=== PATIENT | male | born 1980 | race Caucasian/White ===

== ENCOUNTER → 2018-04-01 13:34 | Outpatient (CLI) | payer OTHER, SELFPAY ==
--- NOTE | 2018-04-01 | DI.ECHO.S_ITS ---
[facility] +---------+ : : [address] : : : : [id number] : : : : Phone: [phone]+ Echocardiogram Report + + :Name: TRISTON GARAY Study Date: 04/01/2018 Height: 73 in : :[facility] Weight: 200 lb : : Gender: Male BSA: 2.2 m2 : :: 1980 Age: 37 yrs BP: 124/78 mmHg: :Reason For Study: Atrial fibrillation : :Ordering Physician: Rajan : :Kandice Performed By: Nelly Benavides : + + Interpretation Summary Normal echo study. Procedure: A two-dimensional transthoracic echocardiogram with color flow and Doppler was performed. The study quality was technically good. There is no prior echocardiogram noted for this patient. The patient was in normal sinus rhythm during the exam. Left Ventricle: The left ventricle is normal in size, wall thickness, and systolic function without any focal wall motion abnormalities. There is no ventricular septal defect visualized. The ejection fraction is estimated to be 60-65%. Assessment of diastolic parameters indicates normal left ventricular diastolic function and normal filling pressures. Right Ventricle: The right ventricle is normal in size and function. Atria: Both atria are normal in size. There is no Doppler evidence for an interatrial shunt. Mitral Valve: The mitral valve is normal in structure and function. There is no mitral regurgitation noted. Aortic Valve: The aortic valve is trileaflet. The aortic valve opens well. No aortic regurgitation is present. Tricuspid Valve: The tricuspid valve is normal in structure and function. There is a trace or physiologic amount of tricuspid regurgitation. The right ventricular systolic pressure is estimated at 17 mmHg assuming a right atrial pressure of 3 mm Hg. Pulmonic Valve: The pulmonic valve is normal in structure and function. There is a trace or physiologic amount of pulmonic regurgitation. Great Vessels: The aortic root is normal size. The ascending aorta is normal in size. The aortic arch is normal in size. The pulmonary artery is normal size. The IVC is of normal diameter and collapses greater than 50% with a sniff. This suggests a low right atrial pressure of 3 mm Hg. Pericardium/ Pleura There is no pericardial effusion. MMode/2D Measurements & Calculations LVIDd: 4.7 cm LVOT diam: 2.1 cm LVIDs: 3.0 cm Ao root diam: 3.6 cm FS: 36.7 % Aortic Jxn: 2.5 cm EPSS: 0.18 cm asc Aorta Diam: 2.5 cm IVSd: 0.85 cm Ao Arch Diam (Prox Trans): 2.9 cm LVPWd: 0.80 cm LV ledezma. diameter/BSA (cm/m^2): 2.2 LV sys. diameter/BSA (cm/m^2): 1.4 LA A2 area: 14.2 cm2 RA long axis: 4.6 cm LA A4 area: 23.0 cm2 RA area: 15.7 cm2 LA length (vol): 5.4 cm RA vol: 45.1 ml LA vol: 51.9 ml RA : 21.0 ml/m2 LA vol index: 24.1 ml/m2 IVC diam: 1.5 cm RVD1 (basal): 3.7 cm RVD2 (mid): 2.9 cm TAPSE: 2.4 cm Doppler Measurements & Calculations MV E max danish: 55.2 cm/sec TR max danish: 187.1 cm/sec MV A max danish: 48.1 cm/sec TR max P.0 mmHg MV E/A: 1.1 PA V2 max: 83.3 cm/sec Med Peak E' Danish: 10.0 cm/sec PA V2 mean: 58.0 cm/sec E/E' med: 5.5 PA mean P.5 mmHg Lat Peak E' Danish: 11.8 cm/sec PA Accel Time: 0.11 sec E/E' lat: 4.7 E/e' average: 5.1 MV dec time: 0.20 sec MV P1/2t: 59.4 msec MV P1/2t max danish: 55.3 cm/sec MVA(P1/2t): 3.7 cm2 Electronically signed by: Dioni Rachel on Reading Physician:04/01/2018 03:22 PM
== END ==
PROVIDERS: PCP Internal Medicine; Visit Provider Family Medicine
DX: I48.91 Unspecified atrial fibrillation (principal)
CPT/HCPCS: 93306

== ENCOUNTER 2020-04-21 10:07 | Emergency (ER) | payer OTHER, SELFPAY ==
[2020-04-21] VITALS (9 sets, daily range): BP systolic 125–141; BP diastolic 85–94; PULSE 83–94; RESP 16–18; TEMP 36.9; O2SAT 95–99; BMI 25.7
[2020-04-21] MEDS: DEXAMETHASONE 10 MG/ML VIAL PO (10:24)
--- NOTE | 2020-04-21 10:24 | ED.GENADULT ---
HPI - General Adult General Chief complaint: Shortness of Breath/Dyspnea Stated complaint: Inhaler hasnt been working for him, couple days Time Seen by Provider: 04/21/20 10:10 Source: patient Mode of arrival: Ambulatory Limitations: no limitations History of Present Illness HPI narrative: 39-year-old male with a history of asthma. States he knows that cats are triggers to his asthma. Approximately 1 month ago his family decided to get a kidney and since then he has had problems with his asthma. Has seen his primary provider. Does have a albuterol inhaler at home and also Advair denies any fevers. Has been doing his medicines at home without any improvement. Is not on any inhaled steroids. Related Data Previous Rx's Medication Instructions Recorded dexamethasone [Decadron] 12 mg PO DAILY #3 tab 04/21/20 Allergies Allergy/AdvReac Type Severity Reaction Status Date / Time No Known Drug Allergies Allergy Verified 04/21/20 10:17 Review of Systems Constitutional Constitutional: Denies fatigue and Denies headache(s) ENT Ears, Nose, Mouth, and Throat: Denies headache(s) Cardiovascular Cardiovascular: Denies chest pain and Reports dyspnea Respiratory Respiratory: Denies cough, Reports dyspnea and Reports wheezing Genitourinary Genitourinary: Denies dysuria Genitourinary: Denies dysuria Musculoskeletal Musculoskeletal: Denies arthralgias and Denies myalgias Integumentary/Breasts Skin/Breast: Denies rash Neurologic Neurologic: Denies behavioral changes and Denies headache(s) Psychiatric Psychiatric: Denies behavioral changes Endocrine Endocrine: Denies fatigue Hematologic/Lymphatic Hematologic/Lymphatic: Denies easy bleeding and Denies easy bruising Allergic/Immunologic Allergic/Immunologic: Denies urticaria and Reports wheezing Patient History Medical History Asthma (Acute) Social History Smoking Status: Unknown if ever smoked Smoking Status: Unknown if ever smoked alcohol intake frequency: 0-2 drinks per day Substance Use Type: does not use Exam Initial Vital Signs Initial Vital Signs: Vital Signs Pulse Rate 91 H 04/21/20 10:14 Pulse Oximetry 97 04/21/20 10:14 Const General: cooperative, comfortable and well developed Limitations: mental status not altered HENWV Head: normal to inspection and normocephalic Resp Effort & Inspection: normal respiratory effort Auscultation: clear to auscultation bilaterally Cardio Rate: regular rate Rhythm: regular rhythm GI Inspection: non-distended Palpation: soft Skin Lesions: no lesions Rashes: no rashes Neuro General: patient alert and patient awake Cognition: normal cognition Speech: speech normal Extrem General: capillary refill normal Psych Appearance: grossly normal and well kempt Course Orders Ordered: ED Orders 04/21/20 10:14 COVID19 -ED/INPAT/OR/L&D Stat 04/21/20 10:16 RT Consult Eval and Treat Now 04/21/20 11:15 Basic Metabolic Panel Stat Complete Blood Count AUTO DIFF Stat D Dimer Stat 04/21/20 11:43 EKG-12 Lead Stat Discontinued Medications Albuterol (Ventolin Hfa (Vent/Covid R/O)) 4 puff INH NOW ONE Stop: 04/21/20 10:16 Last Admin: 04/21/20 10:39 Dose: 4 puff Documented by: MERRILL Albuterol/Ipratropium (Duoneb) 3 ml INH NOW ONE Stop: 04/21/20 11:09 Last Admin: 04/21/20 11:28 Dose: 3 ml Documented by: KATHLEEN Dexamethasone (Decadron) 10 mg PO NOW ONE Stop: 04/21/20 10:16 Last Admin: 04/21/20 10:24 Dose: 10 mg Documented by: REDD Vital Signs Vital signs: Vital Signs - 8 hr 04/21/20 10:14 04/21/20 10:15 04/21/20 10:30 Temperature 98.5 F Pulse Rate 91 H 86 87 Respiratory Rate 16 Blood Pressure 141/94 H Pulse Oximetry 97 96 98 04/21/20 10:44 04/21/20 11:00 04/21/20 11:15 Temperature Pulse Rate 94 H 87 86 Respiratory Rate 18 16 Blood Pressure 125/85 Pulse Oximetry 99 95 96 04/21/20 11:31 Temperature Pulse Rate 83 Respiratory Rate 16 Blood Pressure Pulse Oximetry 97 Medical Decision Making Lab Data Lab results reviewed: Yes I reviewed the patient's lab results. Result diagrams: 04/21/20 11:15 04/21/20 11:15 Labs: Lab Results 04/21/20 04/21/20 04/21/20 Range/Units 10:14 11:15 11:15 WBC 5.1 (4.5-11.0) X10^3/uL RBC 5.61 (4.5-5.9) X10^6/uL Hgb 16.6 (13.5-17.5) g/dL Hct 48.4 (41-53) % MCV 86.3 (80-100) fL MCH 29.5 (26-34) PG MCHC 34.2 (30-36) % RDW 13.0 (11.6-14.8) % Plt Count 225 (150-400) X10^3/uL Neut % (Auto) 62.8 (50-75) % Lymph % (Auto) 25.8 (25-40) % [place] % (Auto) 7.2 (3-14) % Eos % (Auto) 3.3 (2-4) % Baso % (Auto) 0.9 (0-2) % Neut # (Auto) 3200 (8660-4010) /uL Lymph # (Auto) 1300 (9963-8194) /uL [place] # (Auto) 400 (0-900) /uL Eos # (Auto) 200 (0-450) /uL Baso # (Auto) 0 (0-100) /uL D-Dimer < 200 (<230) ng/mL Sodium (137-145) mmol/L Potassium (3.4-5.1) mmol/L Chloride (98-107) mmol/L Carbon Dioxide (22-32) mmol/L BUN (9-20) mg/dL Creatinine (0.66-1.25) mg/dL Estimated GFR (>60) mL/min BUN/Creatinine Ratio (6-22) Glucose (70-100) mg/dL Calcium (8.4-10.2) mg/dL COVID-19 PCR Negative (Negative) 04/21/20 Range/Units 11:15 WBC (4.5-11.0) X10^3/uL RBC (4.5-5.9) X10^6/uL Hgb (13.5-17.5) g/dL Hct (41-53) % MCV (80-100) fL MCH (26-34) PG MCHC (30-36) % RDW (11.6-14.8) % Plt Count (150-400) X10^3/uL Neut % (Auto) (50-75) % Lymph % (Auto) (25-40) % [place] % (Auto) (3-14) % Eos % (Auto) (2-4) % Baso % (Auto) (0-2) % Neut # (Auto) (8466-4552) /uL Lymph # (Auto) (4989-0966) /uL [place] # (Auto) (0-900) /uL Eos # (Auto) (0-450) /uL Baso # (Auto) (0-100) /uL D-Dimer (<230) ng/mL Sodium 138 (137-145) mmol/L Potassium 4.2 (3.4-5.1) mmol/L Chloride 105 (98-107) mmol/L Carbon Dioxide 29 (22-32) mmol/L BUN 14 (9-20) mg/dL Creatinine 0.78 (0.66-1.25) mg/dL Estimated GFR > 60.0 (>60) mL/min BUN/Creatinine Ratio 17.9 (6-22) Glucose 100 (70-100) mg/dL Calcium 9.3 (8.4-10.2) mg/dL COVID-19 PCR (Negative) ECG Data Attestation: I personally reviewed and interpreted this ECG as follows: Prior ECG tracings: not available for review Interpretation: Sinus rhythm Ventricular rate 81 Normal axis Normal QRS Normal QTC No ST T wave changes MDM Narrative Medical decision making narrative: Patient not hypoxic, not tachypneic, no fevers, COVID negative, EKG is unremarkable, D-dimer is negative. Patient reports minimal improvement after the albuterol and a nebulizer however on exam he has no wheezing. Given his lack of other symptoms of low suspicion for ACS or pneumonia. Given his clinical presentation and his negative D-dimer I have low suspicion for pulmonary embolism. I feel we can hold on radiologic studies. He was given steroids and will give a dose to take in 36 hours. He has a follow-up this afternoon to discuss other changes to his medications with his primary provider. He is given return precautions. He expressed understanding and agreement with plan Discharge Plan Departure Patient Disposition: Home Clinical Impression: Asthma with exacerbation Instructions: DI for Asthma -- Adult Activity Restrictions/Additional Instructions: Continue all of your medications as directed. Keep all of your scheduled medical appointments to discuss any potential changes to her medications. Return to the emergency department for any new or worsening symptoms Prescriptions: New dexamethasone [Decadron] 4 mg tablet 12 mg PO DAILY Qty: 3 RF: 0 Referrals: Beatrice Woodson ARNP [Primary Care Provider] -
[2020-04-21 10:37] LABS: COVID19 -Nasal RAPID Negative (Negative)
[2020-04-21] MEDS: ALBUTEROL HFA 200 PUFF/18 GM INH (COVID POS/VENT PTS) INH (10:39)
--- NOTE | 2020-04-21 10:46 | RT ---
MDI Teaching with spacer, Pt mitul well, no distress noted and on room air. at bedside, pt states he still feels he cant take a full deep breath
[2020-04-21 11:21] LABS: Add Manual Diff / Slide Review NO; Basophils Absolute Auto 0 /uL (0-100); Basophils Percent Auto 0.9 % (0-2); Eosinophils Absolute Auto 200 /uL (0-450); Eosinophils Percent Auto 3.3 % (2-4); Hematocrit 48.4 % (41-53); Hemoglobin 16.6 g/dL (13.5-17.5); Lymphocytes Absolute Auto 1300 /uL (1100-4500); Lymphocytes Percent Auto 25.8 % (25-40); Mean Corpuscular HGB Conc 34.2 % (30-36); Mean Corpuscular Hemoglobin 29.5 PG (26-34); Mean Corpuscular Volume 86.3 fL (80-100); Monocytes Absolute Auto 400 /uL (0-900); Monocytes Percent Auto 7.2 % (3-14); Neutrophils Absolute Auto 3200 /uL (1500-7000); Neutrophils Percent Auto 62.8 % (50-75); Platelet Count 225 X10^3/uL (150-400); Red Blood Cell Count 5.61 X10^6/uL (4.5-5.9); White Blood Cell Count 5.1 X10^3/uL (4.5-11.0)
[2020-04-21 11:28] LABS: D Dimer < 200 ng/mL (<230)
[2020-04-21] MEDS: ALBUTEROL/IPRATROPIUM 3 ML AMPUL INH (11:28)
[2020-04-21 11:29] LABS: BUN Creatinine Ratio 17.9 (6-22); Blood Urea Nitrogen 14 mg/dL (9-20); Calcium 9.3 mg/dL (8.4-10.2); Carbon Dioxide 29 mmol/L (22-32); Chloride 105 mmol/L (98-107); Estimated Glomerular Filt Rate > 60.0 mL/min (>60); Glucose 100 mg/dL (70-100); HEMOLYSIS < 15 (0-50); Potassium 4.2 mmol/L (3.4-5.1); Sodium 138 mmol/L (137-145)
== END 2020-04-21 12:18 | disposition home or self-care (01) ==
PROVIDERS: Emergency Provider Emergency Medicine; PCP Internal Medicine; Referring Provider Emergency Medicine
DX: J45.901 Unspecified asthma with (acute) exacerbation (principal); R07.9 Chest pain, unspecified
CPT/HCPCS: 36415; 80048; 85025; 85379; 87635; 93005; 93010; 94640; 99284; A9270; J1100

== ENCOUNTER 2024-08-08 12:01 | Emergency (ER) | payer OTHER, SELFPAY ==
[2024-08-08] VITALS (8 sets, daily range): BP systolic 136–169; BP diastolic 86–96; PULSE 89–100; RESP 16–18; TEMP 36.8; O2SAT 93–100; BMI 25.0
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
== END 2024-08-08 15:19 | disposition home or self-care (01) ==
PROVIDERS: Emergency Provider Emergency Medicine; PCP Internal Medicine
DX: S16.1XXA Strain of muscle, fascia and tendon at neck level, initial encounter (principal); S39.012A Strain of muscle, fascia and tendon of lower back, initial encounter; V49.40XA Driver injured in collision with unspecified motor vehicles in traffic accident, initial encounter; Y92.488 Other paved roadways as the place of occurrence of the external cause
CPT/HCPCS: 99281